=== PATIENT | female | born 1955 | race Caucasian/White ===

== ENCOUNTER 2017-10-07 09:46 | Day surgery (SDC) | payer OTHER ==
[~2017-10-07] VITALS: Ht 162.6 cm; Wt 73.5 kg
[2017-10-07] MEDS ORDERED: LIPITOR20 MG PO (10:38)
[2017-10-07] MEDS ORDERED: METFORMIN HCL1000 M2 PO (10:39)
[2017-10-07] MEDS ORDERED: TROSPIUM CHLORI20 MG PO (10:40)
[2017-10-07] MEDS ORDERED: TRESIBA FL100 UNIT/1 (10:44)
--- NOTE | 2017-10-07 11:53 | NUR ---
BLOOD GLUCOSE 220 STATES SHE FEELS BETTER.
--- NOTE | 2017-10-07 12:48 | NUR ---
10/07/17 Delbert8 Camelia Mario 1243-PATIENT ARRIVED TO PACU ON 2L NC O2 SAT 97% PATIENT AWAKE DENIES PAIN OR NAUSEA. GLUCOSE 288
--- NOTE | 2017-10-09 14:55 | OR ---
[facility] [address], [place] [address] Signed DATE OF OPERATION: 10/07/2017 SURGEON: Luis Jaimes MD PREOPERATIVE DIAGNOSES: 1. History of multiple polyps, previous colonoscopy ([place], [place]). 2. Diabetes mellitus. POSTOPERATIVE DIAGNOSES: 1. No evidence of recurrent polyps. 2. Internal hemorrhoidal changes. PROCEDURE: Total colonoscopy to cecum. ANESTHESIA: Intravenous sedation, fentanyl 100 mcg, Versed 5 mg. INDICATION: This 62-year-old white woman is a patient of Dr. Viera and Dr. Edwards of [place], [place]. She has diabetes mellitus. She said to have undergone colonoscopy in [place], [place] a number of years ago and had multiple polyps. She has not had surveillance colonoscopy since that time. She is generally symptom-free, having no bleeding, diarrhea, or constipation. She does have reflux from [id number] and she has had diarrhea occasionally, but none currently. She is admitted to undergo colonoscopy for surveillance. Understands the risks of bleeding, infection, and perforation. FINDINGS: The prep was good. Complete colonoscopy was undertaken to the cecum. The ileocecal valve and appendiceal orifice were well identified and normal. There was no evidence of recurrent polyps and she had no diverticulosis or colitis. She did have internal hemorrhoidal changes. There was no sign of bleeding or thrombosis. PROCEDURE: The patient was brought to the endoscopy suite and placed in lateral decubitus position, given intravenous sedation to the point of slurred speech and nystagmus. Digital rectal examination was normal. An Olympus video colonoscope was passed in the rectum and manipulated throughout the colon, ultimately intubating the cecum itself. The ileocecal valve and appendiceal Electronically Signed By: LUIS JAIMES MD 10/09/17 1455 PATIENT NAME: LORELEI ROSA OPERATIVE REPORT DATE OF : 51 PHYSICIAN: LUIS JAIMES MD REPORT #: [id number] REPORT IS CONFIDENTIAL AND NOT TO BE RELEASED WITHOUT AUTHORIZATION [facility] [address], [place] [address] Signed orifice were well identified and normal. The scope was withdrawn from that point and careful inspection upon withdrawal of scope showed no sign of polyps or diverticular formation or colitis. Retroflexed view in the rectum confirmed internal hemorrhoidal changes and minimal inflammation there. There was no sign of thrombosis, bleeding, or other problems. The scope was removed and the patient was taken to recovery room in good condition. CONCLUDING DIAGNOSIS: Essentially normal colon without sign of recurrent polyp. Internal hemorrhoidal changes noted. PLAN: Recommend high-fiber diet. I would recommend repeat colonoscopy in 5 to 10 years based on polyp history, sooner if symptoms should occur. She will return to the ongoing care of Dr. Edwards and also Dr. Viera. MD LISANDRO Rushing/ALDA /[id number] cc: MD Alyx Moses MD Electronically Signed By: LUIS JAIMES MD 10/09/17 1455 PATIENT NAME: LORELEI ROSA OPERATIVE REPORT DATE OF : 51 PHYSICIAN: LUIS JAIMES MD REPORT #: [id number] REPORT IS CONFIDENTIAL AND NOT TO BE RELEASED WITHOUT AUTHORIZATION
== END 2017-10-07 13:32 | disposition home or self-care (01) ==
LOC: OPS 09:46 → DS 09:46 → OPS 12:00 → DS 13:00 → OPS 13:32
PROVIDERS: Surgery
PROC: 0DJD8ZZ Inspection of Lower Intestinal Tract, Via Natural or Artificial Opening Endoscopic (ICD-10-PCS; principal; 2017-10-07 12:00)
DX: Z12.11 Encounter for screening for malignant neoplasm of colon (principal); K64.8 Other hemorrhoids; E11.9 Type 2 diabetes mellitus without complications; K21.9 Gastro-esophageal reflux disease without esophagitis; K58.9 Irritable bowel syndrome, unspecified; Z88.2 Allergy status to sulfonamides; Z86.010 Personal history of colon polyps; Z79.899 Other long term (current) drug therapy; Z79.52 Long term (current) use of systemic steroids; Z90.89 Acquired absence of other organs; Z90.710 Acquired absence of both cervix and uterus; Z98.890 Other specified postprocedural states
CPT/HCPCS: 99153; G0500; J2250; J3010; J7120